=== PATIENT | male | born 1985 | race Caucasian/White ===

== ENCOUNTER 2016-10-03 17:10 | Emergency (ER) | payer MEDICAID ==
[2014-10-12 09:42] VITALS: BMI 25.1
[~2016-10-03 17:10] MED LIST: DEPAKOTE500 MG PO; PROZAC40 MG PO
== END 2016-10-03 18:00 | disposition left against medical advice (07) ==
LOC: D.ER 17:10
DX: R11.2 Nausea with vomiting, unspecified (principal)